=== PATIENT | male | born 1960 | race Caucasian/White ===

== ENCOUNTER → 2024-07-30 | Outpatient (CLI) | payer BC ==
[~2024-07-30] VITALS: Ht 177.8 cm; Wt 96.2 kg
[2024-07-30] MEDS: ADENOSINE 81 MG in GIVE UN-DILUTED 0 ML IV ONE (08:58)
--- NOTE | 2024-07-30 10:24 | DVHSR ---
APPROVED REPORT Exam: Nuclear Stress Test BMI: 0 Stress Test Details HR Max Heart Rate (APMHR): 156.699392 bpm Target HR (85% APMHR): 132.222644 bpm BP ECG Stress ECG Conclusion Resting images shows near homogeneous uptake of radioactive tracer throughout the myocardium without evidence of myocardial infarction. Stress images shows near homogeneous uptake of radioactive tracer throughout the myocardium without e vidence of myocardial ischemia. Well-preserved left ventricular systolic function at 54%. Impression: Negative stress test for ischemia, low risk study. NM EXAM: Myocardial Perfusion REST/STRESS Imaging Protocol: Rest Tc-99m/Stress Tc-99m 1 day Resting Data Rest SPECT myocardial perfusion imaging was performed in supine position 60 minutes following the int ravenous injection of 18 mCi of Tc-99m Sestamibi. Time of rest injection: 0745 Time of rest imagin Administration Route: IV Administration Site: Right AC Pharmacologic Stress Pharmacologic stress test was performed by injecting Adenosine mg IV push followed by the intravenou s injection of 31.3 mCi of Tc-99m Sestamibi. Time of stress injection: 0855 Time of stress imagin Administration Route: IV Administration Site: Right AC The images were gated to evaluate regional wall motion and calculate left ventricular ejection fracti on. Stress only was performed in the Supine position. Nuclear Conclusion ECG Findings: negative for ischemia Clinical Findings: negative for ischemia Nuclear Findings: negative for ischemia Exercise Capacity: not assessed Left Ventricular Function: normal Risk Study: low Resting images shows near homogeneous uptake of radioactive tracer throughout the myocardium without evidence of myocardial infarction. Stress images shows near homogeneous uptake of radioactive tracer throughout the myocardium without e vidence of myocardial ischemia. Well-preserved left ventricular systolic function at 54%. Impression: Negative stress test for ischemia, low risk study.
== END | disposition home or self-care (01) ==
LOC: XY 07:44
PROVIDERS: ATTEND Specialist
DX: Z01.810 Encounter for preprocedural cardiovascular examination (principal); E78.2 Mixed hyperlipidemia
CPT/HCPCS: 78452; 93017; A9500; J0153